=== PATIENT | female | born 1990 | race Caucasian/White ===

== ENCOUNTER → 2016-08-28 | Day surgery (SDC) | payer BC ==
[~2016-08-28] VITALS: Ht 172.7 cm; Wt 88.5 kg
[~2016-08-28] MED LIST: ACET50TA PO; HYDROmorphone HCL 2 MG/ML 1ML VIAL (J1170) As Ordered ONE; IBUP80TA PO; IBUPROFEN 100 MG/5 ML SUSP UDC DYE FREE PO PRN; LABETALOL HCL 100 MG/20 ML VIAL As Ordered ONE; LR 1,000 ML IV ONE; LR 1,000 ML IV SCH; MIDAZOLAM INJ 2 MG/2 ML VIAL (J2250) As Ordered ONE; NUVAMIS2 IC; ONDANSETRON 4MG/2ML VIAL (J2405) As Ordered ONE; ONDANSETRON 4MG/2ML VIAL (J2405) IV ONE; ONDANSETRON 4MG/2ML VIAL (J2405) IV PRN; PROPOFOL 200 MG/20 ML VIAL As Ordered ONE; ROCURONIUM BROMIDE 50 MG/5 ML VIAL As Ordered ONE; SUCCINYLCHOLINE 100 MG/5 ML SYRINGE (J0330) As Ordered ONE; VITAPRTA PO; dexameTHASONE 4 MG/ML 1ML VIAL (J1100) IV ONE; fentaNYL 100 MCG/2 ML INJECTION (J3010) As Ordered ONE; fentaNYL 100 MCG/2 ML INJECTION (J3010) IV PRN
[2016-08-28 12:16] LABS: CONTROL LINE UCG INT CTR LINE PRESENT
[2016-08-28 18:35] VITALS: BP 121/75
--- NOTE | 2016-09-04 19:23 | RO ---
DATE OF PROCEDURE: 08/28/2016 PREOPERATIVE DIAGNOSES: Adenoid hypertrophy. POSTOPERATIVE DIAGNOSES: Adenoid hypertrophy. PROCEDURE PERFORMED: Adenoidectomy. SURGEON: Helio Mccray MD [employer] COUNSELOR: ANESTHESIA: General. CLINICAL PREAMBLE: This 26-year-old woman presented to the office with history of nasal congestion. Management options an adenoidectomy have been discussed. The patient understood and consented to the procedure. DESCRIPTION OF PROCEDURE: Patient was identified in preoperative holding and brought to the operating room in stable condition. In supine position on the operating table, patient received general anesthesia followed by orotracheal intubation without incident. Patient was prepped and draped in the usual fashion for the procedure. The Elisabeth-Antonio mouth gag was inserted and suspended. The red rubber catheter was inserted via the right naris to retract the soft palate. Using a mirror, the hypertrophic adenoid tissue was visualized. Using the Coblator wand set at 7 for Coblation and 3 for coagulation, the hypertrophic adenoid tissue was ablated. Hemostasis was achieved. At the end of the procedure, sponge and instrument counts were correct. No complication was encountered. Estimated blood loss was less than 50 mL. General anesthesia was reversed, and patient was extubated and brought to the recovery room in stable condition.
== END | disposition home or self-care (01) ==
LOC: M SDC 11:27
PROVIDERS: ATTEND Otolaryngology
DX: J35.2 Hypertrophy of adenoids (principal); J31.0 Chronic rhinitis; K21.9 Gastro-esophageal reflux disease without esophagitis; Z79.899 Other long term (current) drug therapy
CPT/HCPCS: 42831; 84703; J0330; J1100; J1170; J2250; J2405; J3010

== ENCOUNTER → 2017-01-07 | Outpatient (REF) | payer BC ==
[~2017-01-07] MED LIST changes: -HYDROmorphone HCL 2 MG/ML 1ML VIAL (J1170) As Ordered ONE; -IBUPROFEN 100 MG/5 ML SUSP UDC DYE FREE PO PRN; -LABETALOL HCL 100 MG/20 ML VIAL As Ordered ONE; -LR 1,000 ML IV ONE; -LR 1,000 ML IV SCH; -MIDAZOLAM INJ 2 MG/2 ML VIAL (J2250) As Ordered ONE; -ONDANSETRON 4MG/2ML VIAL (J2405) As Ordered ONE; -ONDANSETRON 4MG/2ML VIAL (J2405) IV ONE; -ONDANSETRON 4MG/2ML VIAL (J2405) IV PRN; -PROPOFOL 200 MG/20 ML VIAL As Ordered ONE; -ROCURONIUM BROMIDE 50 MG/5 ML VIAL As Ordered ONE; -SUCCINYLCHOLINE 100 MG/5 ML SYRINGE (J0330) As Ordered ONE; -dexameTHASONE 4 MG/ML 1ML VIAL (J1100) IV ONE; -fentaNYL 100 MCG/2 ML INJECTION (J3010) As Ordered ONE; -fentaNYL 100 MCG/2 ML INJECTION (J3010) IV PRN
== END ==
LOC: M LAB REF 17:42
PROVIDERS: ATTEND Advanced Practice Midwife
DX: Z12.4 Encounter for screening for malignant neoplasm of cervix (principal)

== ENCOUNTER → 2018-05-10 | Outpatient (REF) | payer BC ==
[~2018-05-10] MED LIST changes: -ACET50TA PO; +MAPA500T2 PO
== END ==
LOC: M LAB REF 17:07
PROVIDERS: ATTEND Advanced Practice Midwife
DX: Z12.4 Encounter for screening for malignant neoplasm of cervix (principal)

== ENCOUNTER → 2020-06-13 | Outpatient (REF) | payer OTHER ==
[2020-06-13 13:46] LABS: HEMATOCRIT 38.3 % (36.0-47.0); HEMOGLOBIN 12.6 g/dl (12.0-15.5); MEAN CORPUSCULAR HEMOGLOBIN 28.5 pg (27.0-33.0); MEAN CORPUSCULAR HGB CONC 32.9 g/dl (32.0-36.5); MEAN CORPUSCULAR VOLUME 86.7 fl (80.0-96.0); PLATELET COUNT, AUTOMATED 304 10^3/uL (150-450); RED BLOOD COUNT 4.42 10^6/uL (4.00-5.40)
[2020-06-13 14:50] LABS: HEPATITIS C VIRUS ABY INDEX < 0.0 INDEX (<0.8); HIV 1&2 SCREEN CENTAUR NEGATIVE (NEGATIVE)
== END ==
LOC: M PLALAB 11:35
PROVIDERS: ATTEND Advanced Practice Midwife
DX: O34.219 Maternal care for unspecified type scar from previous cesarean delivery (principal)

== ENCOUNTER → 2020-07-20 | Outpatient (CLI) | payer OTHER ==
--- NOTE | 2020-07-20 10:22 | REP ---
INDICATION: ANATOMY. COMPARISON: None. TECHNIQUE: Real-time sonographic evaluation of the gravid uterus performed. FINDINGS: Estimated gestational age is18 weeks 6 days, EDC 12/15/2020. Today's measurements indicate appropriate growth. Presentation: Variable Placenta anterior, grade 1, without evidence of placenta previa. heart rate is recorded at 130 beats per minute. Amniotic fluid is subjectively normal. Closed cervical length is measured at 4.3 cm. Biometry chart: BPD: 41 mm, 18 weeks 3 days, 39th percentile. HC: 159 mm, 18 weeks 5 days, 47th percentile AC: 126 mm, 18 weeks 1 days, 35th percentile Femur length: 28 mm, 18 weeks 4 days, 45th percentile HC to AC ratio: 1.27, normal range 1.07-1.26. Estimated weight: 240g, 23rd percentile. anatomy: Cranium: Grossly normal Lateral Ventricles/Choroid Plexus: Grossly normal Posterior Fossa/Cerebellum: Grossly normal Nose/lips/profile: Grossly normal Four chamber heart: Not well seen due to position Right ventricular outflow tract: Not well seen due to position Left ventricular outflow tract: Not well seen due to position Left-sided stomach: Grossly normal Kidneys: Grossly normal Bladder: Grossly normal Cord Insertion: Grossly normal 3 vessel cord: Grossly normal Spine: Grossly normal IMPRESSION: Viable single intrauterine gestation as above. Heart structures not well seen due to position. <Electronically signed by Ken Whittaker > 07/20/20 [id number]
== END ==
LOC: M WHC 08:56
PROVIDERS: ATTEND Advanced Practice Midwife
DX: O34.219 Maternal care for unspecified type scar from previous cesarean delivery (principal); Z3A.18 18 weeks gestation of pregnancy

== ENCOUNTER → 2020-08-13 | Outpatient (CLI) | payer OTHER ==
--- NOTE | 2020-08-13 10:01 | REP ---
INDICATION: F/U ANATOMY COMPARISON: 07/20/2020 TECHNIQUE: Transabdominal obstetrical ultrasound with color Doppler evaluation. FINDINGS: Examination demonstrates a single live intrauterine in transverse presentation. motion is identified by technologist. Placenta is noted anterior and grade 1 without evidence for placenta previa or abruption. Amniotic fluid volume is normal. Cervix measures 4.8 cm in length and appears closed.. Gestational age by LMP 22 weeks 2 days with ENDY 12/15/2020. Gestational age by current measurements 22 weeks 3 days with ENDY is 12/14/2020. FHR equals 143 beats per minute. Estimated weight 467 grams (30thpercentile). Anatomical assessment demonstrates normal structures including cranium, choroid plexus, cavum, cerebellum/posterior fossa, facial features, lungs, four-chamber heart/ventricular outflow tracts, diaphragm, stomach, cord insertion/three-vessel cord, kidneys/bladder, and extremities. IMPRESSION: Single live intrauterine in transverse lie demonstrating appropriate estimated weight/growth. In conjunction with prior examination anatomical assessment is complete and normal. <Electronically signed by Andrei Fairbanks > 08/13/20 [id number]
== END ==
LOC: M WHC 06:52
PROVIDERS: ATTEND Advanced Practice Midwife
DX: Z34.82 Encounter for supervision of other normal pregnancy, second trimester (principal)

== ENCOUNTER → 2020-09-18 | Outpatient (CLI) | payer OTHER ==
[2020-09-18 15:39] LABS: HEMATOCRIT 34.4 % (36.0-47.0); HEMOGLOBIN 10.9 g/dl (12.0-15.5); MEAN CORPUSCULAR HEMOGLOBIN 28.5 pg (27.0-33.0); MEAN CORPUSCULAR HGB CONC 31.7 g/dl (32.0-36.5); MEAN CORPUSCULAR VOLUME 89.8 fl (80.0-96.0); PLATELET COUNT, AUTOMATED 302 10^3/uL (150-450); RED BLOOD COUNT 3.83 10^6/uL (4.00-5.40); WHITE BLOOD COUNT 9.2 10^3/uL (4.0-10.0)
== END ==
LOC: M PLALAB 10:34
PROVIDERS: ATTEND Advanced Practice Midwife
DX: O34.219 Maternal care for unspecified type scar from previous cesarean delivery (principal)

== ENCOUNTER → 2020-11-13 | Outpatient (REF) | payer OTHER | LOC: M SFHCWAGY 17:00 | PROVIDERS: ATTEND Advanced Practice Midwife | DX: Z36.85 Encounter for antenatal screening for Streptococcus B (principal); O34.219 Maternal care for unspecified type scar from previous cesarean delivery; Z3A.00 Weeks of gestation of pregnancy not specified ==

== ENCOUNTER → 2020-12-06 | Outpatient (CLI) | payer OTHER ==
[~2020-12-06] MED LIST changes: +GNP28TAB2 PO
== END ==
LOC: M LABSMTC 11:19
PROVIDERS: ATTEND Anesthesiology
DX: Z01.812 Encounter for preprocedural laboratory examination (principal); Z20.822 Contact with and (suspected) exposure to COVID-19

== ENCOUNTER 2020-12-21 05:34 | Inpatient (IN) | payer OTHER ==
[~2020-12-21] VITALS: Ht 167.6 cm; Wt 114.0 kg
[2020-12-21] VITALS (11 sets, daily range): BP systolic 102–142; BP diastolic 65–92
[2020-12-21] MEDS ORDERED: METHYLERGONOVINE MALEATE 0.2 MG/ML VIAL (J2210) IM PRN (06:00)
[2020-12-21] MEDS ORDERED: OXYTOCIN DRIP 30 UNITS in IV 1 EA IV PRN ×4 (06:00)
[2020-12-21] MEDS ORDERED: TRANEXAMIC ACID INJection 1,000 MG in NS 100 ML IV PRN (06:00)
[2020-12-21] MEDS ORDERED: OXYTOCIN INJ 10 UNITS/ML VIAL (J2590) IM PRN (06:00)
[2020-12-21] MEDS ORDERED: CARBOPROST TROMETHAMINE 250 MCG/ML AMP IM PRN (06:00)
[2020-12-21] MEDS ORDERED: LIDOCAINE 1% MDV 20ML VIAL INFIL PRN (06:00)
[2020-12-21] MEDS ORDERED: OXYTOCIN 30 UNITS IN 0.9% NaCl 500ML IV BAG (J2590) As Ordered ONE (06:08)
[2020-12-21 06:10] LABS: HEMATOCRIT 34.4 % (36.0-47.0); MEAN CORPUSCULAR HEMOGLOBIN 26.7 pg (27.0-33.0); MEAN CORPUSCULAR VOLUME 83.5 fl (80.0-96.0); PLATELET COUNT, AUTOMATED 342 10^3/uL (150-450); RED BLOOD COUNT 4.12 10^6/uL (4.00-5.40); WHITE BLOOD COUNT 11.5 10^3/uL (4.0-10.0)
--- NOTE | 2020-12-21 06:25 | HPE ---
HISTORY AND PHYSICAL DATE OF ADMISSION: 12/21/2020 HISTORY OF PRESENT ILLNESS: Amy is a 30-year-old 3 para 2-0-0-2 at 40 weeks and 6 days with an EDC of 12/15/2020 based on first trimester ultrasound. She presents to Labor and Delivery today with a report of onset of uncomfortable contractions at 0230 and they have progressively become closer together and more painful. She does deny vaginal bleeding and leakage of fluid. The fetus has been active. Her care was initiated at [facility] in the first trimester. Her course was complicated by a history of section due to breech presentation followed by a successful vaginal after and a desire for a TOLAC at this point. OBSTETRIC HISTORY: April 19: 37 weeks, 8 pound, 1 ounce female, section, breech presentation, spontaneous rupture of membranes; December 10, 2014: 41 weeks, 8 pound, 12 ounce female, vaginal after section, no complications. OBSTETRIC LABS: A positive, antibody screen negative, syphilis negative, gonorrhea and chlamydia negative, hepatitis B negative, hepatitis C negative, HIV negative, rubella nonimmune. Urine culture: No growth: Gestational diabetic screening 04/20 and GBS is negative. PAST MEDICAL HISTORY: Hearing loss. PAST SURGICAL HISTORY: Primary section, adenoidectomy. FAMILY HISTORY: Myocardial infarction, bladder cancer, hypertension and diabetes. SOCIAL HISTORY: The patient is . Her is at bedside and supportive. She is a nonsmoker. Denies alcohol and drug use. No history of any sexually transmitted infections and denies a history of abuse, physical, sexual and emotional. ALLERGIES: No known drug allergies. CURRENT MEDICATIONS: vitamin. OBJECTIVE: Vital signs have yet to be taken. She is alert and oriented x3. She does appear uncomfortable with her contractions. Deep breathing and concentrating. heart rate is 140 with moderate variability, positive accelerations, negative decelerations, there is an occasional early deceleration, contractions are every 3 minutes. Her abdomen is gravid, cephalic presentation, estimated weight 9 pounds to 9.5 pounds. Sterile vaginal exam, 7 to 8 cm dilated, 100% effaced, -3 station, bulging bag of membranes. ASSESSMENT: Intrauterine at 40 and 6 days, heart rate is Category 1, active labor at term, trial of labor after a prior section. PLAN: Admit the patient to Labor and Delivery, Dr. Gore aware of patient's arrival and current status, saline lock, out of bed ad eliud, continuous monitoring at this time, clear liquid diet, I do anticipate continue labor progress and a spontaneous vaginal delivery, , will consider assisted rupture of membranes to expedite delivery. The risks, benefits and alternatives have been reviewed. All of her and her 's questions have been answered. She has been verbally consented for emergency surgery and blood products if they are necessary.
[2020-12-21] MEDS ORDERED: HOME MED LIST COMPLETE! XX SCH (07:15)
[2020-12-21] MEDS ORDERED: METHYLERGONOVINE MALEATE 0.2 MG TAB PO PRN (08:55)
[2020-12-21] MEDS ORDERED: DOCUSATE SODIUM 100MG CAPSULE PO PRN (08:55)
[2020-12-21] MEDS ORDERED: MEASLES,MUMPS,RUBELLA VACCINE INJ (MMR-II) (90707) SC SCH (08:55)
[2020-12-21] MEDS ORDERED: ACETAMINOPHEN TAB 650MG DOSE (2X325MG) PO PRN (08:55)
[2020-12-21] MEDS ORDERED: DIBUCAINE 1% OINTMENT 30GM TOP PRN (08:55)
[2020-12-21] MEDS ORDERED: IBUPROFEN 600MG TAB PO PRN (08:55)
[2020-12-21] MEDS ORDERED: RHOGAM 300 MCG (1500 IU) INJ (J2790) IM SCH (08:55)
--- NOTE | 2020-12-21 09:24 | DN ---
DELIVERY NOTE DATE OF DELIVERY: 12/21/2020 TIME OF : GENDER: APGARS: LACERATIONS: ANESTHESIA: ESTIMATED BLOOD LOSS: COUNTS: DESCRIPTION OF DELIVERY: Amy is a 30-year-old 3 para 3-0-0-3 now who was admitted to labor and delivery in active labor. She coped with her labor physiologically. She had assisted rupture of membranes at 0718 for moderate amount of clear fluid. She reached complete dilation at 0818. She pushed to a normal spontaneous vaginal delivery of a live male infant in OA position with restitution to ROT position at 0824. There was no nuchal cord. There was a mild shoulder dystocia that was relieved with Fransico maneuver. The 's mouth and nares were bulb suctioned and he was placed on the maternal abdomen crying and active. Cord was clamped times 2 once pulsations ceased and cut by the father of the baby under my direction. Spontaneous expulsion of an intact placenta with three-vessel cord by Fernandez mechanism was at 0830. Uterine hemostasis achieved with IV Pitocin rapid infusion and uterine fundal massage. Estimated blood loss: 400 mL. Perineum and vagina inspected and noted to have a first-degree laceration. The laceration was infiltrated with 1% lidocaine and repaired with 3-0 Vicryl Rapide in the usual fashion. The male weighed 10 pounds 3 ounces (4620 grams). Apgars were 9 and 9. Mom is going to breast feed her son and the family have named him Garrit. At the close of delivery, lap counts, needle counts and instrument counts were correct and verified. [facility]
[2020-12-21] MEDS: IBUPROFEN 800 MG TAB PO PRN ×2 (09:34→17:58)
[2020-12-21] MEDS: PRENATAL VITAMINS CHEWABLE TABLET PO SCH (11:47)
[2020-12-21] MEDS: ACETAMINOPHEN 500 MG TAB PO PRN ×2 (12:24→20:23)
[2020-12-22] MEDS: IBUPROFEN 800 MG TAB PO PRN (05:01)
[2020-12-22 06:14] VITALS: BP 126/80
[2020-12-22] MEDS: PRENATAL VITAMINS CHEWABLE TABLET PO SCH (09:06)
[2020-12-22] MEDS: ACETAMINOPHEN 500 MG TAB PO PRN (09:09)
== END 2020-12-22 17:50 | disposition home or self-care (01) | DRG 807 ==
LOC: M LDO 05:34 → M LDI 05:51 → M OBS 11:08
PROVIDERS: ADMIT Advanced Practice Midwife; ATTEND Advanced Practice Midwife
PROC: 10E0XZZ Delivery of Products of Conception, External Approach (ICD-10-PCS; principal; 2020-12-21)
PROC: 10907ZC Drainage of Amniotic Fluid, Therapeutic from Products of Conception, Via Natural or Artificial Opening (ICD-10-PCS; 2020-12-21)
PROC: 0HQ9XZZ Repair Perineum Skin, External Approach (ICD-10-PCS; 2020-12-21)
DX: O48.0 Post-term pregnancy (principal); Z37.0 Single live birth; Z3A.40 40 weeks gestation of pregnancy; O34.211 Maternal care for low transverse scar from previous cesarean delivery; O66.0 Obstructed labor due to shoulder dystocia; O70.0 First degree perineal laceration during delivery

== ENCOUNTER → 2021-08-29 | Outpatient (REF) | payer OTHER | LOC: M PLALAB 10:45 | PROVIDERS: ATTEND Advanced Practice Midwife | DX: Z12.4 Encounter for screening for malignant neoplasm of cervix (principal); Z53.9 Procedure and treatment not carried out, unspecified reason ==

== ENCOUNTER → 2021-08-30 | Outpatient (REF) | payer OTHER | LOC: M SFHCWAGY 10:17 | PROVIDERS: ATTEND Advanced Practice Midwife | DX: Z12.4 Encounter for screening for malignant neoplasm of cervix (principal) | CPT/HCPCS: 87624; G0123 ==

== ENCOUNTER → 2022-09-05 | Outpatient (REF) | payer OTHER ==
[~2022-09-05] MED LIST changes: +ETON1VAG7 IC; -NUVAMIS2 IC
== END ==
LOC: M SFHCWAGY 17:29
PROVIDERS: ATTEND Advanced Practice Midwife
DX: Z12.4 Encounter for screening for malignant neoplasm of cervix (principal)
CPT/HCPCS: 87624; G0123

== ENCOUNTER → 2023-09-08 | Outpatient (REF) | payer OTHER ==
[2023-09-10 13:55] LABS: HPV APTIMA Not Detected (Not Detected)
== END ==
LOC: M PLALAB 10:10
PROVIDERS: ATTEND Advanced Practice Midwife
DX: Z12.4 Encounter for screening for malignant neoplasm of cervix (principal)
CPT/HCPCS: 87624; G0123

== ENCOUNTER → 2024-12-19 | Outpatient (CLI) | payer OTHER | LOC: M PLAIMG 07:40 | PROVIDERS: ATTEND Physician Assistant Medical | DX: H90.A31 Mixed conductive and sensorineural hearing loss, unilateral, right ear with restricted hearing on the contralateral side (principal); J34.2 Deviated nasal septum ==